=== PATIENT | male | born 2000 | race African-American/Black ===

== ENCOUNTER 2020-06-08 23:12 | Emergency (ER) | payer OTHER ==
[~2020-06-08] VITALS: Ht 170.2 cm; Wt 69.0 kg
[2020-06-08 23:24] VITALS: TEMP 98
[2020-06-09] MEDS ORDERED: MOTRIN 600600 MG/TAB PO (00:09)
[2020-06-09] MEDS ORDERED: MEDROL 4MG DOSPA4 MG PO (00:09)
[2020-06-09] MEDS ORDERED: TYLENOL 325MG325 MG PO (00:09)
[2020-06-09 00:30] VITALS: BP 130/69; PULSE 89
== END 2020-06-09 00:31 | disposition home or self-care (01) ==
LOC: COL.ER 23:12 → EDBD 23:14 → COL.ER 23:14
DX: S46.812A Strain of other muscles, fascia and tendons at shoulder and upper arm level, left arm, initial encounter (principal); X50.0XXA Overexertion from strenuous movement or load, initial encounter; Y99.1 Military activity
CPT/HCPCS: J1885